=== PATIENT | male | born 1985 | race Asian ===

== ENCOUNTER 2024-06-24 02:43 | Emergency (ER) | payer BC, SELFPAY ==
[2024-06-24 02:45] VITALS: BP 124/78
--- NOTE | 2024-06-24 02:52 | ED.GENMED ---
History of Present Illness
<TEENA Astudillo - Last Filed: 06/24/24 04:49>
General
Chief Complaint: Flank Pain
Source: patient
Time Seen by Provider: 06/24/24 02:50
Nursing documentation reviewed up to this point in time: agreed with except (patient told me he was not nauseas )
History of Present Illness
History of Present Illness:
Patient is a 39 year old male presenting to the ED with complaints of left flank pain x 1 hour. Patient states it woke him up around 145am and he took Motrin at 2. The Motrin helped a little bit but not much. The pain started as dull but turned into
a severe sharp pain. It was rated a 6/10 on a pain scale currently and is a constant pain. He states the pain radiates towards the left side of his abdomen. Nothing like this has ever happened to him before. Patient denies any fever hematuria
dysuria changes in urinary frequency/urgency headache dizziness sob chest pain palpitations nausea vomiting.
Patient denies any PMH of kidney stones or UTIs but states his mother has a history of kidney stones. He does not take any daily medications and doesn't have any allergies. He denies any tobacco or alcohol use.
Review of Systems
<TEENA Astudillo - Last Filed: 06/24/24 04:49>
Review of Systems
Allergies reviewed?: Yes
Constitutional: Reports no symptoms
Respiratory: Reports no symptoms
Cardiac: Reports no symptoms
ABD/GI: Reports abdominal pain
: Reports flank pain
Neurological: Reports no symptoms
Phy Exam
<TEENA Astudillo - Last Filed: 06/24/24 04:49>
General Physical Exam
General Presentation: mild distress
General age: appears stated age
General Habitus: normal
General Mental: alert
Cardiovascular Exam
Cardiovascular Exam: regular rate/rhythm, no edema, no gallop, no JVD and no murmur
Pulmonary Exam
Pulmonary Exam: lungs clear, no respiratory distress, no rales, chest non tender, no crackles, no rhonchi, no stridor, no wheezing and no cough
Gastrointestinal Exam
Gastrointestinal Exam: normal bowel sounds, non tender, soft, no organomegaly, no pulsatile mass, non distended and cva tenderness
Palpation: generalized: No tenderness
Course
<TEENA Astudillo - Last Filed: 06/24/24 04:49>
Orders/Labs/Results
Orders:
Orders
06/24/24 02:50
CT Abd/pel Without Iv Or Oral Urgent
Comment:
Reason For Exam: flank pain
0.9% Sodium Chloride 1000 ml [Nss] 1,000 ml IV BOLUS
Ketorolac [Toradol] 15 mg IV NOW STA
06/24/24 03:01
Complete Blood Count/With Diff Urgent
Comprehensive Metabolic Panel Urgent
Lipase Urgent
06/24/24 03:02
Urinalysis Reflex To Culture Urgent
Date Specimen was Collected: 06/24/24
Time Specimen was Collected: 03:01
Urine Microscopic Reflex Cult Urgent
Urine Culture Urgent
MINDY Source: U
Specimen Description:
Date Specimen was Collected: 06/24/24
Time Specimen was Collected: 03:01
06/24/24 03:36
HYDROmorphone [Dilaudid] 0.5 mg .ROUTE .STK-MED ONE
06/24/24 03:39
HYDROmorphone [Dilaudid] 0.5 mg IV NOW STA
06/24/24 03:45
HYDROmorphone [Dilaudid] 0.5 mg .ROUTE .STK-MED ONE
06/24/24 04:01
Ketorolac [Toradol] 30 mg IV NOW STA
Tamsulosin [Flomax] 0.4 mg PO NOW STA
Abnormal Lab Results
06/24/24 06/24/24
03:01 03:02
MPV 10.5 H fL
(7.4-10.4)
Absolute Lymphs (auto) 3.8 H 10^3/uL
(1.2-3.4)
Absolute Monos (auto) 0.9 H 10^3/uL
(0.1-0.6)
Neutrophils % 40.4 L %
(42.2-75.2)
Monocytes % 11.2 H %
(1.7-9.3)
Glucose 147 H mg/dl
(70-99)
Urine Ketones Trace A
(Negative)
Ur Occult Blood Reflex 4+ A
(Negative)
Urine RBC 50-60 A /HPF
(0-2)
Urine Bacteria (Reflex) Moderate A
(Negative)
06/24/24 03:01
06/24/24 03:01
Vital Signs
Initial and Last Documented VS:
Initial Vital Signs
Temp Pulse Resp BP Pulse Ox
99 F 80 22 124/78 96
06/24/24 02:45 06/24/24 02:45 06/24/24 02:45 06/24/24 02:45 06/24/24 02:45
Last Documented Vital Signs
Temp Pulse Resp BP Pulse Ox
99 F 80 22 110/64 97
06/24/24 02:45 06/24/24 02:45 06/24/24 02:45 06/24/24 04:11 06/24/24 04:11
<Anthony Sapp DO - Last Filed: 06/24/24 05:08>
Orders/Labs/Results
Orders:
Orders
06/24/24 02:50
CT Abd/pel Without Iv Or Oral Urgent
Comment:
Reason For Exam: flank pain
0.9% Sodium Chloride 1000 ml [Nss] 1,000 ml IV BOLUS
Ketorolac [Toradol] 15 mg IV NOW STA
06/24/24 03:01
Complete Blood Count/With Diff Urgent
Comprehensive Metabolic Panel Urgent
Lipase Urgent
06/24/24 03:02
Urinalysis Reflex To Culture Urgent
Date Specimen was Collected: 06/24/24
Time Specimen was Collected: 03:01
Urine Microscopic Reflex Cult Urgent
Urine Culture Urgent
MINDY Source: U
Specimen Description:
Date Specimen was Collected: 06/24/24
Time Specimen was Collected: 03:01
06/24/24 03:36
HYDROmorphone [Dilaudid] 0.5 mg .ROUTE .STK-MED ONE
06/24/24 03:39
HYDROmorphone [Dilaudid] 0.5 mg IV NOW STA
06/24/24 03:45
HYDROmorphone [Dilaudid] 0.5 mg .ROUTE .STK-MED ONE
06/24/24 04:01
Ketorolac [Toradol] 30 mg IV NOW STA
Tamsulosin [Flomax] 0.4 mg PO NOW STA
Abnormal Lab Results
06/24/24 06/24/24
03:01 03:02
MPV 10.5 H fL
(7.4-10.4)
Absolute Lymphs (auto) 3.8 H 10^3/uL
(1.2-3.4)
Absolute Monos (auto) 0.9 H 10^3/uL
(0.1-0.6)
Neutrophils % 40.4 L %
(42.2-75.2)
Monocytes % 11.2 H %
(1.7-9.3)
Glucose 147 H mg/dl
(70-99)
Urine Ketones Trace A
(Negative)
Ur Occult Blood Reflex 4+ A
(Negative)
Urine RBC 50-60 A /HPF
(0-2)
Urine Bacteria (Reflex) Moderate A
(Negative)
06/24/24 03:01
06/24/24 03:01
Vital Signs
Initial and Last Documented VS:
Initial Vital Signs
Temp Pulse Resp BP Pulse Ox
99 F 80 22 124/78 96
06/24/24 02:45 06/24/24 02:45 06/24/24 02:45 06/24/24 02:45 06/24/24 02:45
Last Documented Vital Signs
Temp Pulse Resp BP Pulse Ox
99 F 80 22 110/64 97
06/24/24 02:45 06/24/24 02:45 06/24/24 02:45 06/24/24 04:11 06/24/24 04:11
<TEENA Astudillo - Last Filed: 06/24/24 04:49>
MDM/Problems Addressed
Differential Diagnosis Includes:
nephrolithiasis, UTI, pyelonephritis,
MDM/Problems Addressed:
Order labs and CTA, give fluids and Toradol 449a update meds have alleviated symptoms
<TEENA Astudillo - Last Filed: 06/24/24 04:49>
*Critical Care Note
Total Time (30-74mins, 75-104mins- exclusive of procedures): Not Applicable
<Anthony Sapp DO - Last Filed: 06/24/24 05:08>
Update Note
Update Note:
CT abdomen and pelvis without IV contrast
IMPRESSION:
Mild left hydroureteronephrosis secondary to a 4 mm stone lodged in the proximal left ureter, compatible with obstructive uropathy. Correlate with urinalysis to assess for superimposed infection.
No cholecystitis or pancreatitis. No bowel obstruction or diverticulitis. Abdominal aorta is of normal caliber. Asymmetric elevation of the left hemidiaphragm.
ED Attending Note
<TEENA Astudillo - Last Filed: 06/24/24 04:49>
-
Portions of this chart may have been created with voice recognition software.� Occasional wrong word or��sound alike� substitutions may have occurred due to the inherent limitations of voice recognition software.
<Anthony Sapp DO - Last Filed: 06/24/24 05:08>
ED Attending Note
Patient seen and examined by attending physician: Yes
I performed the substantive portion of visit, reviewed & personally made and approve the management plan that is documented in note by myself or GARRET.: Yes
ED Attending Note:
39-year-old male presents with left flank pain that has been present for 1 hour prior to arrival. Around 1:45 AM he awakened with sharp left flank pain. He denies history of kidney stones but states that he has a familial history of kidney stones.
He denies fever or chills. He took some Motrin which seemed to help slightly. Patient did report some nausea without vomiting. He states that when the pain is at its worst it was intolerable. He has never had symptoms like this before. Patient
was seen in conjunction with the PA student. I have reviewed and agree with the history and treatment plan presented. On my independent physical exam, patient is awake, alert, and oriented x3 moderate acute distress despite several pain
medications. Left CVA tenderness.. Heart is regular rate and rhythm. Lungs are clear to auscultation without wheezes rales or rhonchi present.
Discharge Plan
Departure
Patient Disposition: Home (Routine Discharge)
Date of Disposition: 06/24/24
Time of Disposition: 05:00
Patient with high blood pressure during this ER visit?: No
Condition: Good
Discharge Problem:
Kidney stone
Instructions: Kidney Stones (DC), Flank Pain (DC), How to Strain Your Urine, Narcotic Pain Medication
Prescriptions:
New
oxycodone-acetaminophen [Percocet] 5-325 mg Tablet
1 tab PO Q6HPRN PRN (Reason: pain) Qty: 8 0RF
tamsulosin [Flomax] 0.4 mg Capsule
0.4 mg PO DAILY Qty: 7 0RF
diclofenac sodium 75 mg tablet,delayed release (DR/EC)
75 mg PO BID Qty: 10 0RF
Referrals:
Karl Osorio MD [Active] - Call in 1-3 days for appt
Stand Alone Forms: Return to Work
Activity Restrictions/Additional Instructions:
[Your prescriptions were sent electronically to the pharmacy that you specified.]
It was a pleasure meeting you and taking part in your care. We hope for your continued healing and wellness.
Please read discharge instructions in their entirety. However, they are for general education and may not describe your exact diagnosis at discharge. Information on your ER visit and medical conditions were discussed with you along with appropriate
follow up information...
If indicated, please take your medications as instructed and indicated on discharge paperwork.
Please schedule a follow up appointment as directed. Call to schedule an appointment
Please return to the emergency department with ANY change in, persisting, or worsening of symptoms. If any of your symptoms do not improve, or persist, or become more severe within 6-12 hours, please return to the emergency department for further
care.
Please return to the emergency department if you develop a headache, neck pain/stiffness, fever greater than 100.4F, chest pain, shortness of breath, persistent nausea, vomiting, slurred speech, difficulty walking, numbness/tingling, weakness, signs
of infection or any other symptoms that are worrisome to you.
If you have any questions or concerns please do not hesitate to call the Hospital at or E-mail me directly at [email or web address]
Interventions
Interventions:
*Risk Screen - Suicide Last Done: 06/24/24 02:45
*General Assessment Last Done: 06/24/24 03:11
*Neglect/Abuse Screening Last Done: 06/24/24 02:45
ED- Fall Risk Assessment Last Done: 06/24/24 03:09
*ED COVID-19 Vaccine History Last Done: 06/24/24 03:11
LD-Avmkzm-Kfplvpbpxh Assessment Last Done: 06/24/24 03:09
ED-Male Genitourinary Assessment Last Done: 06/24/24 03:09
Discharge Date and Time
Print Language: BULGARIAN
[2024-06-24] MEDS: NSS 1000 IV (02:58)
[2024-06-24 03:12] LABS: Urine Albumin Trace (Neg - Trace); Urine Bilirubin Negative (Negative); Urine Character Slightly Cloudy (Clear); Urine Color Yellow; Urine Glucose Negative (Negative); Urine Ketone Trace (Negative); Urine Leukocyte Negative (Negative); Urine Nitrite Negative (Negative); Urine Occult Blood 4+ (Negative); Urine Urobilinogen Negative (Neg - 1+)
[2024-06-24 03:13] LABS: % Basophils 0.5 % (0-2); % Eosinophils 1.2 % (0-6); % Immature Granulocytes 0.4 % (0-0.5); % Lymphocytes 46.3 % (20.5-51.1); % Monocytes 11.2 % (1.7-9.3); % Neutrophils 40.4 % (42.2-75.2); Absolute Eosinophils 0.1 10^3/uL (0-0.7); Absolute Lymphocytes 3.8 10^3/uL (1.2-3.4); Absolute Monocytes 0.9 10^3/uL (0.1-0.6); Absolute Neutrophils 3.3 10^3/uL (1.4-6.5); Hematocrit 44.8 % (39.0-52.0); Hemoglobin 15.8 g/dL (13.0-18.0); Mean Corp Hgb Conc. 35.3 g/dL (33.0-37.0); Mean Corpuscular Volume 82.2 fL (80.0-94.0); Mean Platelet Volume 10.5 fL (7.4-10.4); Nucleated Red Blood Cells % 0 % (-); Platelet Count 285 10^3/uL (130-400); Red Blood Cell Count 5.45 10^6/uL (4.70-6.10); Red Cell Dist. Width 12.6 % (11.5-14.5); White Blood Cell Count 8.1 10^3/uL (4.8-10.8)
[2024-06-24 03:17] VITALS: BP 105/65
[2024-06-24 03:19] LABS: Urine Red Blood Cell 50-60 /HPF (0-2); Urine Squamous Cell 0-2 /LPF (Few)
[2024-06-24 03:20] LABS: Urine Bacteria Moderate (Negative)
[2024-06-24 03:35] LABS: ALT (SGPT) 40 U/L (0-50); AST (SGOT) 27 U/L (17-59); Albumin 4.5 g/dl (3.5-5.0); Alkaline Phosphatase 65 U/L (38-126); Blood Urea Nitrogen 14 mg/dl (9-20); Calcium 9.5 mg/dl (8.4-10.2); Carbon Dioxide 26 mmol/L (22-30); Chloride 104 mmol/L (98-107); Glucose 147 mg/dl (70-99); Lipase 202 U/L (23-300); Potassium 4.2 mmol/L (3.5-5.1); Sodium 142 mmol/L (135-145); Total Protein 6.9 g/dl (6.3-8.2); eGFR > 60.00
[2024-06-24] MEDS: DILAUDID 0.5 MG IV ×2 (03:39→03:46)
[2024-06-24] MEDS: FLOMAX 0.4 MG PO (04:07)
[2024-06-24] MEDS: TORADOL 30 MG IV (04:09)
[2024-06-24 04:11] VITALS: BP 110/64
[2024-06-24 05:00] VITALS: BP 94/64
== END 2024-06-24 05:19 | disposition home or self-care (01) ==
LOC: EMR 02:43
PROVIDERS: EMERGENCY PHYSICIAN Student in an Organized Health Care Education/Training Program
DX: N13.2 Hydronephrosis with renal and ureteral calculous obstruction (principal); Z86.16 Personal history of COVID-19
CPT/HCPCS: 99284; 96374; 96375; 74176; 80053; 81003; 81015; 83690; 85025; 87086

== ENCOUNTER 2025-03-23 20:44 | Emergency (ER) | payer BC, SELFPAY ==
[2025-03-23 20:45] VITALS: BP 130/89
[2025-03-23 21:03] LABS: Hematocrit 43.6 % (39.0-52.0); Hemoglobin 15.4 g/dL (13.0-18.0); Mean Corp Hgb Conc. 35.3 g/dL (33.0-37.0); Mean Corpuscular Volume 83.4 fL (80.0-94.0); Nucleated Red Blood Cells % 0 % (-); Platelet Count 351 10^3/uL (130-400); Red Cell Dist. Width 12.3 % (11.5-14.5)
[2025-03-23 21:20] LABS: ALT (SGPT) 29 U/L (0-50); AST (SGOT) 20 U/L (17-59); Albumin 4.6 g/dl (3.5-5.0); Alkaline Phosphatase 41 U/L (38-126); Blood Urea Nitrogen 14 mg/dl (9-20); Calcium 9.4 mg/dl (8.4-10.2); Carbon Dioxide 22 mmol/L (22-30); Chloride 107 mmol/L (98-107); Glucose 142 mg/dl (70-99); Potassium 4.6 mmol/L (3.5-5.1); Sodium 138 mmol/L (135-145); Total Protein 7.7 g/dl (6.3-8.2); eGFR > 60.00
[2025-03-23 22:00] LABS: Lipase 189 U/L (23-300)
--- NOTE | 2025-03-23 22:17 | ED.GENMED ---
History of Present Illness
<Palmira Salcedo PA-C - Last Filed: 03/24/25 02:13>
General
Chief Complaint: Abdominal Pain
Source: patient
Exam Limitations: none
Time Seen by Provider: 03/23/25 21:56
Nursing documentation reviewed up to this point in time: agreed with
History of Present Illness
History of Present Illness:
Patient is a 39-year-old male who presents to the emergency department with abdominal pain. Patient states symptoms initially started 2 days ago and he describes a somewhat constant pain in his right upper abdomen. He does report exacerbation of
pain with eating. Pain is somewhat sharp in nature and is somewhat alleviated when sitting upright.
He denies any associated nausea, vomiting, fever or chills. He denies any radiation of pain into his back. He denies any dysuria or hematuria. He has no chest pain, shortness of breath, or cough
Patient denies any recent travel or recent surgeries. No lower extremity edema.
Review of Systems
<Palmira Salcedo PA-C - Last Filed: 03/24/25 02:13>
Review of Systems
Allergies reviewed?: Yes
All Other Systems: ROS reviewed and negative except as documented in HPI and ROS
Phy Exam
<Palmira Salcedo PA-C - Last Filed: 03/24/25 02:13>
Physical Exam
Physical Exam:
Vitals: Mildly hypertensive, otherwise vital signs stable. Vital
General: Patient is well appearing, no acute distress. Nontoxic appearing
Skin: Warm and dry, no rashes or lesions
Head: Normocephalic, atraumatic
Eyes: Sclera nonicteric.
Throat: Protecting airway
Neck: Normal ROM, no cervical spine tenderness, no meningismus
Cardiac: Regular rate and rhythm, no murmurs.
Pulm: Normal respiratory effort, no wheezes, rales, rhonchi heard on exam
.
Abdomen: Abdomen soft. Moderate tenderness in right upper quadrant/epigastric region. No rebound tenderness or guarding. No focal tenderness McBurney's point.
Extremities: No evidence of cyanosis or edema. Palpable DP pulses
Neuro: AAOx3. Grossly intact
Psychiatric: Normal affect.
Course
<Palmira Salcedo PA-C - Last Filed: 03/24/25 02:13>
Orders/Labs/Results
Orders:
Orders
03/23/25 20:54
Complete Blood Count/With Diff Urgent
Comprehensive Metabolic Panel Urgent
Lipase Urgent
03/23/25 22:06
0.9% Sodium Chloride 1000 ml [Nss] 1,000 ml IV BOLUS
Famotidine [Pepcid] 20 mg IV NOW STA
Ketorolac [Toradol] 15 mg IV NOW STA
US Abdomen Complete/Upper Urgent
Comment:
Reason For Exam: epigastric/right upper quadrant pain
03/24/25
CT Abd/pelvis W Iv Cont Urgent
Reason For Exam: Right upper abdominal pain
Abnormal Lab Results
03/23/25
20:54
Abs Immat Gran (auto) 0.1 H 10^3/uL
(0-0.05)
Absolute Monos (auto) 1.3 H 10^3/uL
(0.1-0.6)
Immature Gran % 0.6 H %
(0-0.5)
Monocytes % 12.2 H %
(1.7-9.3)
Glucose 142 H mg/dl
(70-99)
03/23/25 20:54
03/23/25 20:54
Vital Signs
Initial and Last Documented VS:
Initial Vital Signs
Temp Pulse Resp BP Pulse Ox
98.7 F 79 16 130/89 97
03/23/25 20:45 03/23/25 20:45 03/23/25 20:45 03/23/25 20:45 03/23/25 20:45
Last Documented Vital Signs
Temp Pulse Resp BP Pulse Ox
98.7 F 65 18 137/71 97
03/23/25 20:45 03/24/25 01:43 03/24/25 01:43 03/24/25 01:43 03/24/25 01:43
<April Quinn PA-C - Last Filed: 03/24/25 05:58>
Orders/Labs/Results
Orders:
Orders
03/23/25 20:54
Complete Blood Count/With Diff Urgent
Comprehensive Metabolic Panel Urgent
Lipase Urgent
03/23/25 22:06
0.9% Sodium Chloride 1000 ml [Nss] 1,000 ml IV BOLUS
Famotidine [Pepcid] 20 mg IV NOW STA
Ketorolac [Toradol] 15 mg IV NOW STA
US Abdomen Complete/Upper Urgent
Comment:
Reason For Exam: epigastric/right upper quadrant pain
03/24/25
CT Abd/pelvis W Iv Cont Urgent
Reason For Exam: Right upper abdominal pain
Abnormal Lab Results
03/23/25
20:54
Abs Immat Gran (auto) 0.1 H 10^3/uL
(0-0.05)
Absolute Monos (auto) 1.3 H 10^3/uL
(0.1-0.6)
Immature Gran % 0.6 H %
(0-0.5)
Monocytes % 12.2 H %
(1.7-9.3)
Glucose 142 H mg/dl
(70-99)
03/23/25 20:54
03/23/25 20:54
Vital Signs
Initial and Last Documented VS:
Initial Vital Signs
Temp Pulse Resp BP Pulse Ox
98.7 F 79 16 130/89 97
07/01/25 20:45 03/23/25 20:45 03/23/25 20:45 03/23/25 20:45 03/23/25 20:45
Last Documented Vital Signs
Temp Pulse Resp BP Pulse Ox
98.7 F 65 18 137/71 97
03/23/25 20:45 03/24/25 01:43 03/24/25 01:43 03/24/25 01:43 03/24/25 01:43
<Palmira Salcedo PA-C - Last Filed: 03/24/25 02:13>
MDM/Problems Addressed
Differential Diagnosis Includes:
Not limited to: Biliary colic, acute cholecystitis, choledocholithiasis, cholangitis, pancreatitis, GERD, peptic ulcer, gastritis, etc.
MDM/Problems Addressed:
39-year-old male presenting with right upper abdominal pain X 2 days worse after eating. No associated fever, nausea/vomiting, diarrhea/constipation, urinary symptoms. No chest pain or shortness of breath. Patient arrives with stable vital signs
and is afebrile. On exam�patient well-appearing, no apparent distress. His abdomen is soft throughout though he does have some tenderness in right upper quadrant. Otherwise physical exam unremarkable. Differential broad however given postprandial
nature of symptoms -considered possible biliary etiology including biliary colic, acute cholecystitis, choledocholithiasis, etc. Other considerations include pancreatitis, GERD, peptic ulcer, etc. ED plan: Check labs, lipase. Will start with
abdominal ultrasound. Will give IV fluids, Toradol, Pepcid and reassess.
Update: Labs reviewed no leukocytosis or other clinically significant abnormalities on CBC. Chemistry without acute findings�no transaminitis or elevation in bilirubin. Lipase is normal. Abdominal ultrasound shows no acute findings in abdomen.
On reassessment�patient does have significant improvement in symptoms since arrival to ED however on exam he still has some tenderness in right upper quadrant. Discussed proceeding with CT scan versus discharge home with close monitoring of
symptoms. Shared decision making utilized and will proceed with CT scan abdomen/pelvis.
Update 2:10 AM: Reassessed patient at bedside he was resting comfortably. He has had significant improvement in symptoms following arrival to the emergency department. Case signed out to April Quinn pending CT read. Will plan for trial of
PPI, GI follow-up, strict return precautions if CT negative. Patient comfortable with plan. Strict return precautions discussed.
Chronic conditions affecting care:
N/A
Acute Exacerbation and/or Progression of Chronic Illness:
N/A
<Palmira Salcedo PA-C - Last Filed: 03/24/25 02:13>
*Pulse Oximetry
SaO2: 97
Oxygen Mode of Delivery: Room air
Patient hypoxic: no
*EKG
Interpreted by ED Provider?: NA
*Systems Programmer Interpretation
Rate: Systems Programmer- N/A
*Critical Care Note
Total Time (30-74mins, 75-104mins- exclusive of procedures): Not Applicable
<April Quinn PA-C - Last Filed: 03/24/25 05:58>
Update Note
Update Note:
Update, I received patient in signout, CT scan unremarkable, patient remains pain-free, will discharge with PPI trial and GI follow-up
ED Attending Note
<Palmira Salcedo PA-C - Last Filed: 03/24/25 02:13>
-
Portions of this chart may have been created with voice recognition software.� Occasional wrong word or��sound alike� substitutions may have occurred due to the inherent limitations of voice recognition software.
Discharge Plan
Departure
Patient Disposition: Home (Routine Discharge)
Patient with high blood pressure during this ER visit?: Yes
Discharge Problem:
Abdominal pain
Instructions: Abdominal Pain, BLOOD PRESSURE
Prescriptions:
New
pantoprazole 20 mg tablet,delayed release (DR/EC)
20 mg PO DAILY Qty: 14 0RF
No Action
oxycodone-acetaminophen [Percocet] 5-325 mg Tablet
1 tab PO Q6HPRN PRN (Reason: pain) Qty: 8 0RF
tamsulosin [Flomax] 0.4 mg Capsule
0.4 mg PO DAILY Qty: 7 0RF
diclofenac sodium 75 mg tablet,delayed release (DR/EC)
75 mg PO BID Qty: 10 0RF
Referrals:
Dinah Lambert MD [Active, Gastroenterology] - Next open appointment
PRIVATE,PHYSICIAN [Family Provider, Internal Medicine] - Follow up in 5-7 days
Activity Restrictions/Additional Instructions:
RETURN TO THE EMERGENCY DEPARTMENT WITH ANY FEVER, CHILLS, PERSISTENT/WORSENING ABDOMINAL PAIN, INTRACTABLE NAUSEA/VOMITING, PERSISTENT LACK OF APPETITE, CHEST PAIN OR SHORTNESS OF BREATH, OR ANY OTHER CONCERNS
- As discussed�your lab work and imaging findings showed no acute abnormalities while in the emergency department. You were treated with IV fluids, IV Toradol, and IV Pepcid with significant improvement in symptoms.
- It is important stay well-hydrated. You can take pantoprazole once a day for the next 2 weeks. Continue to take Tylenol and/or Motrin as needed for pain. I would recommend following a bland diet over the next few days and slowly advance as
tolerated
- Follow-up with primary care for further evaluation/management to ensure that symptoms are improving. A contact information for GI has been provided to you, as well.
Monitor your symptoms closely and return to the emergency department with any acute worsening/new symptoms or any other can
Interventions
Interventions:
*Risk Screen - Suicide Last Done: 03/23/25 20:46
*Neglect/Abuse Screening Last Done: 03/23/25 20:46
*Nursing Disposition Last Done: 03/24/25 02:48
AV-Victfv-Iyaguvlnvt Assessment Last Done: 03/23/25 21:45
Discharge Date and Time
Discharge Date/Time: 03/24/25 02:48
Print Language: WOLOF
[2025-03-23] MEDS: NSS 1000 IV (22:19)
[2025-03-23] MEDS: PEPCID 20 MG IV (22:19)
[2025-03-23] MEDS: TORADOL 15 MG IV (22:20)
[2025-03-24 01:43] VITALS: BP 137/71
== END 2025-03-24 02:48 | disposition home or self-care (01) ==
LOC: EMR 20:44
PROVIDERS: Student in an Organized Health Care Education/Training Program; EMERGENCY PHYSICIAN Student in an Organized Health Care Education/Training Program
DX: R10.11 Right upper quadrant pain (principal); R03.0 Elevated blood-pressure reading, without diagnosis of hypertension; Z86.16 Personal history of COVID-19
CPT/HCPCS: 99284; 96374; 96375; 96361; 74177; 76700; 80053; 83690; 85025; Q9967